=== PATIENT | male | born 1990 | race American Indian/Alaskan Native ===

== ENCOUNTER 2022-04-11 02:14 | Emergency (ER) | payer SELFPAY ==
[2022-04-11 02:28] VITALS: BP 128/69
== END 2022-04-11 19:00 | disposition left against medical advice (07) ==
LOC: ED 02:14
DX: R21 Rash and other nonspecific skin eruption (principal); Z53.21 Procedure and treatment not carried out due to patient leaving prior to being seen by health care provider

== ENCOUNTER 2022-04-16 11:53 | Emergency (ER) | payer SELFPAY ==
[2022-04-16 13:18] VITALS: BP 156/75
== END 2022-04-16 14:20 | disposition left against medical advice (07) ==
LOC: ED 11:53
DX: R73.9 Hyperglycemia, unspecified (principal); Z53.21 Procedure and treatment not carried out due to patient leaving prior to being seen by health care provider

== ENCOUNTER 2022-04-25 22:32 | Emergency (ER) | payer SELFPAY ==
--- NOTE | 2022-04-26 05:18 | Emergency Department Report ---
ED General Adult HPI - General Chief complaint: Skin Rash Stated complaint: RASH Source: patient Mode of arrival: Ambulatory Limitations: No Limitations - History of Present Illness Initial comments: Patient is a 31-year-old -[place] male with no past medical history presents to the ED with complaint of acute onset persistent diffuse itchy erythematous maculopapular dry scaly rashes for the last 2 weeks. Patient states that this rashes have worsened in the last 1 week. Patient states that no one else at home is had similar symptoms. Patient denies fever, chills, cough, chest pain or shortness of breath, nausea and vomiting, traumatic injury or dizziness. MD Complaint: Diffuse itchy erythematous maculopapular dry scaly rashes -: Sudden, week(s) (2) Location: chest, abdomen, right, upper extremity, lower extremity Radiation: other (Diffuse) Severity scale (0 -10): 8 Quality: burning, aching, sharp, other (Itchy) Consistency: constant Improves with: none Worsens with: other (Scratching) Associated Symptoms: denies other symptoms, rash (Itchy erythematous dry scaly rashes). denies: confusion, chest pain, cough, fever/chills, loss of appetite, malaise, nausea/vomiting, shortness of breath, syncope, weakness Treatments Prior to Arrival: none - Related Data Previous Rx's Medication Instructions Recorded Last Taken Type Griseofulvin, Microsize 500 mg PO DAILY #30 tab 04/26/22 Unknown Rx [Griseofulvin] hydrOXYzine PAMOATE [Vistaril] 50 mg PO Q8HR PRN #45 capsule 04/26/22 Unknown Rx Allergies Allergy/AdvReac Type Severity Reaction Status Date / Time No Known Allergies Allergy Verified 04/11/22 02:30 ED Review of Systems ROS: Stated complaint: RASH Other details as noted in HPI Constitutional: denies: chills, fever Eyes: denies: eye pain, eye discharge, vision change ENT: denies: ear pain, throat pain Respiratory: denies: cough, shortness of breath, wheezing Cardiovascular: denies: chest pain, palpitations Endocrine: no symptoms reported Gastrointestinal: denies: abdominal pain, nausea, vomiting, diarrhea Genitourinary: denies: urgency, dysuria Musculoskeletal: denies: back pain, joint swelling, arthralgia Skin: rash (Diffuse itchy erythematous maculopapular dry scaly rashes). denies: lesions Neurological: denies: headache, weakness, paresthesias Psychiatric: denies: anxiety, depression Hematological/Lymphatic: denies: easy bleeding, easy bruising ED Past Medical Hx - Past Medical History Previous Medical History?: No - Surgical History Past Surgical History?: Yes Additional Surgical History: L leg - Social History Smoking Status: Current Every Day Smoker Substance Use Type: Marijuana - Medications Home Medications: Home Medications Medication Instructions Recorded Confirmed Last Taken Type Griseofulvin, Microsize 500 mg PO DAILY #30 tab 04/26/22 Unknown Rx [Griseofulvin] hydrOXYzine PAMOATE [Vistaril] 50 mg PO Q8HR PRN #45 capsule 04/26/22 Unknown Rx ED Physical Exam - General Limitations: No Limitations General appearance: alert, in no apparent distress - Head Head exam: Present: atraumatic, normocephalic, normal inspection - Eye Eye exam: Present: normal appearance, PERRL, EOMI Pupils: Present: normal accommodation - ENT ENT exam: Present: normal exam, normal orophraynx, mucous membranes moist, TM's normal bilaterally, normal external ear exam - Neck Neck exam: Present: normal inspection, full ROM. Absent: tenderness - Respiratory Respiratory exam: Present: normal lung sounds bilaterally. Absent: respiratory distress, wheezes, rales, rhonchi, chest wall tenderness, accessory muscle use, decreased breath sounds, prolonged expiratory - Cardiovascular Cardiovascular Exam: Present: normal rhythm, bradycardia, normal heart sounds. Absent: systolic murmur, diastolic murmur, rubs, gallop - GI/Abdominal GI/Abdominal exam: Present: soft, normal bowel sounds. Absent: tenderness, guarding, rebound, hyperactive bowel sounds, hypoactive bowel sounds, organomegaly - Extremities Exam Extremities exam: Present: normal inspection, full ROM, normal capillary refill - Back Exam Back exam: Present: normal inspection, full ROM. Absent: tenderness, CVA t enderness (R), CVA tenderness (L), muscle spasm, paraspinal tenderness, vertebral tenderness - Neurological Exam Neurological exam: Present: alert, oriented X3, CN II-XII intact, normal gait, reflexes normal - Psychiatric Psychiatric exam: Present: normal affect, normal mood - Skin Skin exam: Present: warm, dry, intact, rash (Diffuse erythematous maculopapular dry scaly rashes), erythema. Absent: normal color ED Course Vital Signs 04/26/22 01:21 Temperature 98.2 F Pulse Rate 56 L Respiratory 16 Rate Blood Pressure 109/59 O2 Sat by Pulse 100 Oximetry ED Medical Decision Making - Medical Decision Making This is a 31-year-old -[place] male with no past medical history presents to the ED with complaint of acute onset persistent diffuse itchy erythematous maculopapular dry scaly rashes for the last 2 weeks. Patient states that this rashes have worsened in the last 1 week. Patient states that no one else at home is had similar symptoms. In the ED, patient is alert and oriented x3 and is not in any distress. Patient was treated for itching in the ED. Patient the history and physical exam findings, patient's symptoms are likely due to tinea corporis. Patient was discharged home on medications for tinea corporis and advised to follow-up with his primary care physician in 7 to 10 days for reevaluation or return to the ED immediately if symptoms get worse. - Differential Diagnosis Tinea corporis; irritant dermatitis; acute allergic reaction Critical care attestation.: If time is entered above; I have spent that time in minutes in the direct care of this critically ill patient, excluding procedure time. ED Disposition Clinical Impression: Itching with irritation, Tinea corporis Disposition: HOME / SELF CARE / HOMELESS Is pt being admited?: No Does the pt Need Aspirin: No Condition: Stable Instructions: Body Ringworm, Tinea Versicolor Additional Instructions: Take medication as advised, drink plenty of fluids, avoid alcohol consumption when taking this medication, return to the ED immediately if your symptoms get worse or if you develop severe right upper quadrant abdominal pain. Otherwise follow-up with your primary care physician in 7 to 10 days for reevaluation. Prescriptions: Griseofulvin, Microsize [Griseofulvin] 500 mg PO DAILY #30 tab hydrOXYzine PAMOATE [Vistaril] 50 mg PO Q8HR PRN #45 capsule PRN Reason: Itching Referrals: DARIO SCHWAB MD [Primary Care Provider] - 3-5 Days Time of Disposition: 05:19 Print Language: VINCENTIAN
[2022-04-26 06:16] VITALS: BP 118/67
== END 2022-04-26 06:16 | disposition home or self-care (01) ==
LOC: ED 22:32
DX: L29.9 Pruritus, unspecified (principal); B35.4 Tinea corporis; F17.200 Nicotine dependence, unspecified, uncomplicated; F12.90 Cannabis use, unspecified, uncomplicated
CPT/HCPCS: 99282